=== PATIENT | female | born 1995 | race Caucasian/White ===

== ENCOUNTER 2018-08-07 17:49 | Emergency (ER) | payer SELFPAY ==
[~2018-08-07] VITALS: Ht 157.4 cm; Wt 71.7 kg
[~2018-08-07 17:49] MED LIST: MOTRIN400 MG PO
[2018-08-07 17:52] VITALS: BP 122/60
[2018-08-07] MEDS ORDERED: ZYRTEC10 MG PO (18:54)
== END 2018-08-07 19:11 | disposition home or self-care (01) ==
LOC: ED 17:49
DX: O26.892 Other specified pregnancy related conditions, second trimester (principal); R07.9 Chest pain, unspecified; H92.01 Otalgia, right ear; R09.81 Nasal congestion; Z3A.15 15 weeks gestation of pregnancy; Z91.040 Latex allergy status

== ENCOUNTER 2018-08-11 01:00 | Emergency (ER) | payer SELFPAY ==
[~2018-08-11] VITALS: Ht 157.4 cm; Wt 71.7 kg
[2018-08-11 01:00] VITALS: BP 112/63
[~2018-08-11 01:00] MED LIST changes: +ZYRTEC10 MG PO
[2018-08-11 01:32] LABS: BASO # 0.1 10*3/uL (0.0-0.1); BASO % 0.3 % (0.0-1.0); EOS # 0.3 10*3/uL (0.0-0.4); EOS % 1.6 % (1.0-4.0); HEMATOCRIT 41.5 % (37.0-47.0); HEMOGLOBIN 14.2 g/dl (12.0-16.0); LYMPH # 1.7 10*3/uL (1.3-4.4); LYMPH % 10.2 % (27.0-41.0); MEAN CELL VOLUME 87.6 fl (81.0-99.0); MEAN CORPUSCULAR HGB CONC 34.2 g/dl (33.0-37.0); MEAN PLATELET VOLUME 9.5 fl (9.6-12.3); MONO # 0.7 10*3/uL (0.1-1.0); MONO % 4.5 % (3.0-9.0); NEUT # 13.4 10*3/uL (2.3-7.9); NEUT % 83.1 % (47.0-73.0); PLATELET COUNT AUTOMATED 262 10*3/uL (130-400); RED BLOOD COUNT 4.74 10*6/uL (4.10-5.10); RED CELL DISTRI WIDTH 12.2 % (0-14.5); WHITE BLOOD COUNT 16.1 10*3/uL (4.8-10.8)
[2018-08-11 01:47] LABS: ALBUMIN 3.6 gm/dl (3.1-4.5); ALKALINE PHOSPHATASE 123 U/L (45-117); BUN 12 mg/dl (7-24); CHLORIDE 103 mmol/L (98-107); CREATININE 0.55 mg/dL (0.55-1.02); POTASSIUM 3.7 mmol/L (3.5-5.1); SGOT/AST 16 IU/L (3-35); SGPT/ALT 21 U/L (12-78); SODIUM 138 mmol/L (136-145); TOTAL PROTEIN 8.1 gm/dL (6.4-8.2)
[2018-12-13] MEDS ORDERED: AMOXICILLIN500 M2 PO (15:00)
== END 2018-08-11 03:00 | disposition home or self-care (01) ==
LOC: ED 01:00
PROVIDERS: Nurse Practitioner Family
DX: O21.9 Vomiting of pregnancy, unspecified (principal); O26.892 Other specified pregnancy related conditions, second trimester; R42 Dizziness and giddiness; Z3A.15 15 weeks gestation of pregnancy

== ENCOUNTER → 2018-08-31 | Outpatient (CLI) | payer OTHER ==
[~2018-08-31] MED LIST changes: +AMOXICILLIN500 M2 PO
[2018-09-01 08:10] LABS: TOXOPLASMA GONDII IGM 3.3 AU/mL (0.0-7.9)
== END | disposition home or self-care (01) ==
LOC: LAB 13:33
PROVIDERS: Nurse Practitioner Women's Health
DX: B58.9 Toxoplasmosis, unspecified (principal)

== ENCOUNTER → 2018-12-25 | Outpatient (CLI) | payer OTHER | END | disposition home or self-care (01) | LOC: US 13:00 | DX: Z34.83 Encounter for supervision of other normal pregnancy, third trimester (principal); Z3A.30 30 weeks gestation of pregnancy ==

== ENCOUNTER → 2019-01-19 | Outpatient (CLI) | payer OTHER | END | disposition home or self-care (01) | LOC: US 09:58 | DX: O32.1XX0 Maternal care for breech presentation, not applicable or unspecified (principal); Z3A.33 33 weeks gestation of pregnancy ==

== ENCOUNTER 2019-06-28 21:58 | Emergency (ER) | payer OTHER ==
[~2019-06-28] VITALS: Ht 157.4 cm; Wt 84.8 kg
[2019-06-28 21:59] VITALS: BP 131/82
[2019-06-28 22:49] LABS: BASO # 0.1 10*3/uL (0.0-0.1); BASO % 0.6 % (0.0-1.0); EOS # 0.4 10*3/uL (0.0-0.4); EOS % 3.2 % (1.0-4.0); HEMATOCRIT 37.6 % (37.0-47.0); LYMPH # 3.3 10*3/uL (1.3-4.4); LYMPH % 28.5 % (27.0-41.0); MEAN CELL VOLUME 88.1 fl (81.0-99.0); MEAN CORPUSCULAR HGB 30.4 pg (27.0-31.0); MEAN CORPUSCULAR HGB CONC 34.6 g/dl (33.0-37.0); MEAN PLATELET VOLUME 9.1 fl (9.6-12.3); MONO # 0.5 10*3/uL (0.1-1.0); MONO % 4.2 % (3.0-9.0); NEUT # 7.4 10*3/uL (2.3-7.9); NEUT % 63.3 % (47.0-73.0); PLATELET COUNT AUTOMATED 276 10*3/uL (130-400); RED BLOOD COUNT 4.27 10*6/uL (4.10-5.10); WHITE BLOOD COUNT 11.7 10*3/uL (4.8-10.8)
[2019-06-28 23:21] LABS: ALBUMIN 3.6 gm/dl (3.1-4.5); ALKALINE PHOSPHATASE 114 U/L (45-117); BUN 14 mg/dl (7-24); CHLORIDE 109 mmol/L (98-107); CREATININE 0.75 mg/dL (0.55-1.02); POTASSIUM 3.9 mmol/L (3.5-5.1); SGOT/AST 27 IU/L (3-35); SGPT/ALT 50 U/L (12-78); SODIUM 140 mmol/L (136-145); TOTAL PROTEIN 7.4 gm/dL (6.4-8.2)
[2019-06-28 23:48] LABS: BILIRUBIN NEGATIVE (NEGATIVE); BLOOD NEGATIVE (NEGATIVE); CLARITY SL CLOUDY (CLEAR); COLOR YELLOW (YELLOW); GLUCOSE NEGATIVE (NEGATIVE); KETONE NEGATIVE (NEGATIVE); LEUKO ESTERASE 1+ (NEGATIVE); NITRITE NEGATIVE (NEGATIVE); PH 6.5 (5.0-9.0); SPECIFIC GRAVITY 1.025 (1.005-1.030)
[2019-06-29] LABS: BACTERIA TRACE; RBC 0-2 rbc/hpf (0-2); WBC 16-20 wbc/hpf (0-5)
[2019-06-29] MEDS ORDERED: MACROBID100 M1 PO (00:03)
== END 2019-06-29 00:20 | disposition home or self-care (01) ==
LOC: ED 21:58
PROVIDERS: Nurse Practitioner Family
DX: N39.0 Urinary tract infection, site not specified (principal); R42 Dizziness and giddiness

== ENCOUNTER 2019-09-12 02:39 | Emergency (ER) | payer OTHER ==
[~2019-09-12] VITALS: Wt 68.0 kg
[~2019-09-12 02:39] MED LIST changes: +MACROBID100 M1 PO
[2019-09-12 02:44] VITALS: BP 127/92
== END 2019-09-12 03:30 | disposition home or self-care (01) ==
LOC: ED 02:39
DX: H66.91 Otitis media, unspecified, right ear (principal); Z79.2 Long term (current) use of antibiotics; Z79.899 Other long term (current) drug therapy

== ENCOUNTER 2020-10-06 17:11 | Emergency (ER) | payer OTHER ==
[~2020-10-06] VITALS: Ht 157.4 cm; Wt 95.7 kg
[2020-10-06 17:17] VITALS: BP 126/76
[2020-10-06 17:42] LABS: BASO % 0.2 % (0.0-1.0); EOS % 0.1 % (1.0-4.0); HEMATOCRIT 38.5 % (37.0-47.0); LYMPH # 0.9 10*3/uL (1.3-4.4); LYMPH % 9.1 % (27.0-41.0); MEAN CELL VOLUME 86.5 fl (81.0-99.0); MEAN CORPUSCULAR HGB 29.2 pg (27.0-31.0); MEAN CORPUSCULAR HGB CONC 33.8 g/dl (33.0-37.0); MEAN PLATELET VOLUME 9.2 fl (9.6-12.3); MONO # 0.5 10*3/uL (0.1-1.0); MONO % 5.3 % (3.0-9.0); PLATELET COUNT AUTOMATED 263 10*3/uL (130-400); RED BLOOD COUNT 4.45 10*6/uL (4.10-5.10); RED CELL DISTRI WIDTH 12.3 % (0-14.5); WHITE BLOOD COUNT 9.4 10*3/uL (4.8-10.8)
[2020-10-06 17:44] LABS: BILIRUBIN 1+ (Negative); BLOOD 2+ (Negative); CLARITY Cloudy (Clear); COLOR Dark Yellow (Yellow); GLUCOSE Negative (Negative); KETONE Trace (Negative); LEUKO ESTERASE 2+ (Negative); NITRITE Negative (Negative); PH 5.5 (4.5-8.0); SPECIFIC GRAVITY >= 1.030 (1.001-1.030)
[2020-10-06 17:54] LABS: BACTERIA 2+; EPITHELIAL CELLS TNTC; MUCOUS TRACE; RBC 0-2 rbc/hpf (0-2); WBC 16-20 wbc/hpf (0-5)
[2020-10-06 17:57] LABS: ALBUMIN 3.3 gm/dl (3.1-4.5); ALKALINE PHOSPHATASE 159 U/L (45-117); BUN 11 mg/dl (7-24); CHLORIDE 108 mmol/L (98-107); CREATININE 0.72 mg/dL (0.55-1.02); POTASSIUM 3.3 mmol/L (3.5-5.1); SGOT/AST 36 IU/L (3-35); SGPT/ALT 49 U/L (12-78); SODIUM 139 mmol/L (136-145); TOTAL PROTEIN 7.9 gm/dL (6.4-8.2)
[2020-10-06] MEDS ORDERED: CEPHALEXIN500 M1 PO (20:22)
== END 2020-10-06 21:04 | disposition home or self-care (01) ==
LOC: ED 17:11
PROVIDERS: Nurse Practitioner
DX: N39.0 Urinary tract infection, site not specified (principal); E86.0 Dehydration; Z32.01 Encounter for pregnancy test, result positive; Z79.899 Other long term (current) drug therapy

== ENCOUNTER → 2020-10-15 | Outpatient (CLI) | payer OTHER ==
[~2020-10-15] MED LIST changes: +CEPHALEXIN500 M1 PO
== END | disposition home or self-care (01) ==
LOC: US 11:19
PROVIDERS: ATTEND Nurse Practitioner Women's Health
DX: Z34.82 Encounter for supervision of other normal pregnancy, second trimester (principal); Z3A.15 15 weeks gestation of pregnancy

== ENCOUNTER → 2020-11-13 | Outpatient (CLI) | payer OTHER | END | disposition home or self-care (01) | LOC: US 12:43 | PROVIDERS: ATTEND Obstetrics & Gynecology | DX: Z34.82 Encounter for supervision of other normal pregnancy, second trimester (principal); Z3A.20 20 weeks gestation of pregnancy ==

== ENCOUNTER → 2021-01-15 | Outpatient (CLI) | payer OTHER | END | disposition home or self-care (01) | LOC: US 15:15 | PROVIDERS: ATTEND Obstetrics & Gynecology | DX: Z34.83 Encounter for supervision of other normal pregnancy, third trimester (principal); Z3A.29 29 weeks gestation of pregnancy ==

== ENCOUNTER → 2021-02-12 | Outpatient (CLI) | payer OTHER | END | disposition home or self-care (01) | LOC: US 16:00 | PROVIDERS: ATTEND Nurse Practitioner Women's Health | DX: O09.299 Supervision of pregnancy with other poor reproductive or obstetric history, unspecified trimester (principal); Z3A.33 33 weeks gestation of pregnancy ==

== ENCOUNTER 2021-02-19 19:31 | Emergency (ER) | payer OTHER ==
[~2021-02-19] VITALS: Ht 160 cm; Wt 103.4 kg
[2021-02-19 19:51] VITALS: BP 133/78
[2021-02-19 20:50] LABS: BASO % 0.4 % (0.0-1.0); EOS # 0.1 10*3/uL (0.0-0.4); EOS % 0.9 % (1.0-4.0); HEMATOCRIT 34.9 % (37.0-47.0); LYMPH # 1.1 10*3/uL (1.3-4.4); LYMPH % 19.3 % (27.0-41.0); MEAN CELL VOLUME 90.4 fl (81.0-99.0); MEAN CORPUSCULAR HGB 29.5 pg (27.0-31.0); MEAN CORPUSCULAR HGB CONC 32.7 g/dl (33.0-37.0); MEAN PLATELET VOLUME 9.8 fl (9.6-12.3); MONO # 0.5 10*3/uL (0.1-1.0); MONO % 8.2 % (3.0-9.0); NEUT % 70.7 % (47.0-73.0); PLATELET COUNT AUTOMATED 199 10*3/uL (130-400); RED BLOOD COUNT 3.86 10*6/uL (4.10-5.10); RED CELL DISTRI WIDTH 13.2 % (0-14.5); WHITE BLOOD COUNT 5.7 10*3/uL (4.8-10.8)
[2021-02-19 21:08] LABS: ALBUMIN 2.7 gm/dl (3.1-4.5); ALKALINE PHOSPHATASE 199 U/L (45-117); BUN 8 mg/dl (7-24); CHLORIDE 109 mmol/L (98-107); CREATININE 0.48 mg/dL (0.55-1.02); POTASSIUM 3.6 mmol/L (3.5-5.1); SGOT/AST 46 IU/L (3-35); SGPT/ALT 63 U/L (12-78); SODIUM 141 mmol/L (136-145); TOTAL PROTEIN 6.9 gm/dL (6.4-8.2)
[2021-02-19 21:09] LABS: TROPONIN I < 0.015 ng/ml (<0.045)
== END 2021-02-20 03:27 | disposition home or self-care (01) ==
LOC: ED 19:31
PROVIDERS: Emergency Medicine
DX: O98.513 Other viral diseases complicating pregnancy, third trimester (principal); B34.9 Viral infection, unspecified; R07.89 Other chest pain; Z79.2 Long term (current) use of antibiotics; Z3A.28 28 weeks gestation of pregnancy

== ENCOUNTER 2022-01-22 20:14 | Emergency (ER) | payer OTHER ==
[~2022-01-22] VITALS: Ht 157.4 cm; Wt 90.7 kg
[2022-01-22 20:48] VITALS: BP 115/74
[2022-01-22] MEDS ORDERED: PREDNISONE20 M1 PO (21:00)
== END 2022-01-22 21:10 | disposition home or self-care (01) ==
LOC: ED 20:14
DX: J04.0 Acute laryngitis (principal)

== ENCOUNTER 2022-06-11 19:51 | Emergency (ER) | payer OTHER ==
[~2022-06-11] VITALS: Ht 162.5 cm; Wt 91.6 kg
[~2022-06-11 19:51] MED LIST changes: +PREDNISONE20 M1 PO
[2022-06-11 20:24] VITALS: BP 138/82
[2022-06-11] MEDS ORDERED: PENICILLIN-VK500 MG PO (20:34)
== END 2022-06-11 20:43 | disposition home or self-care (01) ==
LOC: ED 19:51
DX: K02.9 Dental caries, unspecified (principal); F17.200 Nicotine dependence, unspecified, uncomplicated

== ENCOUNTER 2022-09-20 16:36 | Emergency (ER) | payer OTHER ==
[~2022-09-20 16:36] MED LIST changes: +PENICILLIN-VK500 MG PO
[2022-09-20 16:49] VITALS: BP 121/68
[2022-09-20 17:32] LABS: HEMATOCRIT 45.2 % (37.0-47.0); MEAN CELL VOLUME 87.1 fl (81.0-99.0); MEAN CORPUSCULAR HGB 29.9 pg (27.0-31.0); MEAN CORPUSCULAR HGB CONC 34.3 g/dl (33.0-37.0); MEAN PLATELET VOLUME 9.2 fl (9.6-12.3); PLATELET COUNT AUTOMATED 335 10*3/uL (130-400); RED BLOOD COUNT 5.19 10*6/uL (4.10-5.10); RED CELL DISTRI WIDTH 12.3 % (0-14.5); WHITE BLOOD COUNT 12.6 10*3/uL (4.8-10.8)
[2022-09-20 17:33] LABS: MANUAL DIFF REFLEX YES
[2022-09-20 17:49] LABS: ACT PARTIAL THROMBO TIME 27.2 SECONDS (20.0-32.1); ALKALINE PHOSPHATASE 113 U/L (46-116); BETA-HCG, QUANT < 3.0 mIU/mL (0-10); BUN 12 mg/dl (9-23); CHLORIDE 105 mmol/L (98-107); LIPASE 47 U/L (12-53); SGPT/ALT 34 U/L (10-49); TOTAL PROTEIN 8.2 gm/dL (6.0-8.0)
[2022-09-20 17:55] LABS: BILIRUBIN Negative (Negative); BLOOD 1+ (Negative); CLARITY Clear (Clear); COLOR Yellow (Yellow); GLUCOSE Negative (Negative); KETONE Trace (Negative); LEUKO ESTERASE Trace (Negative); NITRITE Negative (Negative); SPECIFIC GRAVITY >= 1.030 (1.001-1.030)
[2022-09-20 18:01] LABS: TOTAL CELLS COUNTED 100 #CELLS
[2022-09-20 18:02] LABS: PLATELET SUFFICIENCY NORMAL (NORMAL)
[2022-09-20 18:07] LABS: BACTERIA 1+; MUCOUS 1+
[2022-09-20] MEDS ORDERED: ONDANSETRON4 MG SL (18:12)
== END 2022-09-20 18:22 | disposition home or self-care (01) ==
LOC: ED 16:36
PROVIDERS: Internal Medicine
DX: R11.2 Nausea with vomiting, unspecified (principal)

== ENCOUNTER 2022-11-04 16:52 | Emergency (ER) | payer OTHER ==
[~2022-11-04] VITALS: Ht 157.4 cm; Wt 90.7 kg
[~2022-11-04 16:52] MED LIST changes: +ONDANSETRON4 MG SL
[2022-11-04 19:04] LABS: BILIRUBIN Negative (Negative); BLOOD Trace-Intact (Negative); CLARITY Turbid (Clear); COLOR Yellow (Yellow); GLUCOSE Negative (Negative); KETONE Negative (Negative); LEUKO ESTERASE 3+ (Negative); NITRITE Negative (Negative)
[2022-11-04 19:24] LABS: BACTERIA 1+; RBC 0-2 rbc/hpf (0-2); WBC 16-20 wbc/hpf (0-5)
[2022-11-04 21:44] VITALS: BP 100/75
[2022-11-04] MEDS ORDERED: CIPRO500 MG PO (22:07)
== END 2022-11-04 23:21 | disposition home or self-care (01) ==
LOC: ED 16:52
PROVIDERS: Internal Medicine
DX: N39.0 Urinary tract infection, site not specified (principal)

== ENCOUNTER 2023-01-22 19:28 | Emergency (ER) | payer OTHER ==
[~2023-01-22] VITALS: Ht 157.4 cm; Wt 95.7 kg
[~2023-01-22 19:28] MED LIST changes: +CIPRO500 MG PO
[2023-01-22 19:38] VITALS: BP 132/86
[2023-01-22] MEDS ORDERED: NAPROXEN250 MG PO (20:18)
== END 2023-01-22 20:53 | disposition home or self-care (01) ==
LOC: ED 19:28
DX: S93.602A Unspecified sprain of left foot, initial encounter (principal); F90.9 Attention-deficit hyperactivity disorder, unspecified type; Z86.16 Personal history of COVID-19; X50.1XXA Overexertion from prolonged static or awkward postures, initial encounter; Y93.01 Activity, walking, marching and hiking; Y92.009 Unspecified place in unspecified non-institutional (private) residence as the place of occurrence of the external cause; Y99.8 Other external cause status

== ENCOUNTER 2023-05-22 18:38 | Emergency (ER) | payer OTHER ==
[~2023-05-22] VITALS: Ht 157.4 cm; Wt 95.7 kg
[~2023-05-22 18:38] MED LIST changes: +NAPROXEN250 MG PO
[2023-05-22 19:12] VITALS: BP 105/79
[2023-05-22] MEDS ORDERED: ZITHROMAX250 MG PO (19:13)
== END 2023-05-22 19:31 | disposition home or self-care (01) ==
LOC: ED 18:38
DX: H65.91 Unspecified nonsuppurative otitis media, right ear (principal); F90.9 Attention-deficit hyperactivity disorder, unspecified type

== ENCOUNTER 2023-05-27 16:32 | Emergency (ER) | payer OTHER ==
[~2023-05-27 16:32] MED LIST changes: +ZITHROMAX250 MG PO
[2023-05-27 16:40] VITALS: BP 132/74
[2023-05-27] MEDS ORDERED: AMOX-CLAV 875-1 EACH PO (17:05)
== END 2023-05-27 17:45 | disposition home or self-care (01) ==
LOC: ED 16:32
DX: H66.91 Otitis media, unspecified, right ear (principal); Z79.2 Long term (current) use of antibiotics

== ENCOUNTER 2024-12-21 17:10 | Emergency (ER) | payer OTHER ==
[~2024-12-21] VITALS: Ht 157.4 cm; Wt 95.3 kg
[~2024-12-21 17:10] MED LIST changes: +AMOX-CLAV 875-1 EACH PO
[2024-12-21 17:38] VITALS: BP 125/75
[2024-12-21] MEDS ORDERED: NAPROSYN500 MG PO (20:01)
[2024-12-21] MEDS ORDERED: Ketorolac Tromethamine 60 MG/2 ML VIAL IM ONE (20:05)
[2024-12-21] MEDS ORDERED: Bacitracin Zinc 14 GM TUBE T ONE (20:05)
[2024-12-21] MEDS ORDERED: Tdap Vaccine 0.5 ML SYR (Adult Vaccine) IM ONE (20:20)
== END 2024-12-21 20:11 | disposition home or self-care (01) ==
LOC: ED 17:10
DX: S93.401A Sprain of unspecified ligament of right ankle, initial encounter (principal); S80.811A Abrasion, right lower leg, initial encounter; W18.09XA Striking against other object with subsequent fall, initial encounter; Y93.89 Activity, other specified; Y92.89 Other specified places as the place of occurrence of the external cause; Y99.8 Other external cause status

== ENCOUNTER 2025-07-13 01:51 | Emergency (ER) | payer OTHER ==
[~2025-07-13] VITALS: Ht 157.4 cm; Wt 93.4 kg
[~2025-07-13 01:51] MED LIST changes: +NAPROSYN500 MG PO
[2025-07-13 01:59] VITALS: BP 137/80
[2025-07-13] MEDS ORDERED: IBUPROFEN 600 MG TAB PO ONE (02:45)
== END 2025-07-13 05:15 | disposition home or self-care (01) ==
LOC: ED 01:51
DX: J02.9 Acute pharyngitis, unspecified (principal); F90.9 Attention-deficit hyperactivity disorder, unspecified type; Z20.822 Contact with and (suspected) exposure to COVID-19